=== PATIENT | female | born 1945 | race Caucasian/White ===

== ENCOUNTER 2024-02-09 10:02 | Emergency (ER) | payer MEDICARE, SELFPAY ==
--- NOTE | ~2024-02-09 | XR_ITS ---
EXAMINATION: XR knee RT min 4V DATE: 02/09/2024 10:49 INDICATION: Right knee pain. TECHNIQUE: 5 views of right knee were obtained. COMPARISON: Right knee radiographs 11/17/2008 FINDINGS: Bone alignment is normal. No fracture. There is severe osteoarthritis of patellofemoral com partment and moderate osteoarthritis of medial and lateral compartments. There is chondrocalcinosis o f the menisci. There is a small knee joint effusion with loose body. IMPRESSION: 1. Severe right knee osteoarthritis. 2. Small right knee joint effusion with loose body. Reviewed, dictated and finalized at location A.
[2024-02-09 10:12] VITALS: BP 146/74; PULSE 80; RESP 16; TEMP 36.8; O2SAT 98
--- NOTE | 2024-02-09 10:28 | ED.GENADULT ---
HPI - General Adult General Chief complaint: Extremity Problem,Nontraumatic Stated complaint: Right Knee Pain Source: patient Mode of arrival: ambulatory Limitations: no limitations History of Present Illness HPI narrative: Patient presents for evaluation of right knee pain since yesterday. She states that her pain started after exercising. She cannot identify any specific movement but states pain is been constant since that time. She rates her pain 9.5/10. She does not provide me with a descriptive quality to the pain. No radicular component. No paresthesias. No identified aggravating or alleviating factors. She took ASA this morning for her pain. She has been ambulating with a cane. Related Data Home Medications Medication Instructions Recorded Confirmed aspirin 81 mg tablet,delayed 81 mg PO DAILY 12/25/21 02/09/24 release (Adult Low Dose Aspirin) simvastatin 10 mg tablet 10 mg PO DAILY 12/25/21 02/09/24 apixaban 5 mg tablet (Eliquis) 5 mg PO BID 01/06/23 02/09/24 metoprolol succinate 25 mg 75 mg PO DAILY 01/06/23 02/09/24 tablet,extended release 24 hr donepezil 10 mg tablet 10 mg PO QHS 01/15/24 02/09/24 Allergies Allergy/AdvReac Type Severity Reaction Status Date / Time Penicillins Allergy Unknown HIVES RASH Verified 02/09/24 10:21 codeine AdvReac Intermediate Vomiting Verified 02/09/24 10:21 erythromycin base AdvReac Intermediate Nausea Verified 02/09/24 10:21 pseudoephedrine AdvReac Intermediate Tachycardia Verified 02/09/24 10:21 Review of Systems Review of Systems: CONSTITUTIONAL: Denies fever, chills, or sweats. EYES: Denies visual changes, redness, or discharge. ENT: Denies rhinorrhea, congestion, sore throat, or otalgia. CARDIOVASCULAR: Denies chest pain, palpitations, or edema. RESPIRATORY: Denies cough or dyspnea. GASTROINTESTINAL: Denies abdominal pain, nausea, vomiting, or diarrhea. GENITOURINARY: Denies dysuria or hematuria. SKIN: Denies rash or itching. MUSCULOSKELETAL: Reports right knee pain. Denies back pain, or myalgia. NEUROLOGIC: Denies headache, numbness, dizziness, or weakness. PSYCHIATRIC: Denies anxiety or depression. 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 History of ventricular septal myectomy 2019 Family History Family History Father Acute myocardial infarction Heart disease Daughter Breast cancer Other Colon polyp Social History Social History Smoking status: Former smoker Tobacco type: cigarettes Second hand tobacco smoke exposure: No Smoking end date: 09/21/1959 Alcohol intake: former Substance use: never Substance use type: does not use Lack of Transportation: No Lack of Food: Never True Current Housing: I Have Housing Concerned About Future Housing: No Difficulty Paying Gas/Electric Bills: No Difficulty Paying for Meds: No Currently Unemployed: No Education: Master's Degree or Higher Difficulty w/ Childcare or Family Care: No Living arrangements: with family Occupation/Education: retired Gender identity (if verbalized by the patient): Female Sexual Orientation (if Verbalized by the Patient): Straight or Heterosexual Spiritual care concerns: No Agree to blood products: Yes Exam Narrative: GENERAL: Well-appearing, well-nourished, and in no acute distress. HEAD: Normocephalic, atraumatic. EYES: PERRLA a
== END 2024-02-09 11:16 | disposition home or self-care (01) ==
PROVIDERS: Emergency Provider Nurse Practitioner; PCP Family Medicine Adolescent Medicine
DX: S86.911A Strain of unspecified muscle(s) and tendon(s) at lower leg level, right leg, initial encounter (principal); X58.XXXA Exposure to other specified factors, initial encounter; M25.461 Effusion, right knee; M23.41 Loose body in knee, right knee; Z87.891 Personal history of nicotine dependence; I48.91 Unspecified atrial fibrillation; Z85.3 Personal history of malignant neoplasm of breast; Z90.13 Acquired absence of bilateral breasts and nipples
CPT/HCPCS: 73564; 99213; G0463; L1830